=== PATIENT | male | born 1990 | race African-American/Black ===

== ENCOUNTER 2019-06-12 06:49 | Emergency (ER) | payer SELFPAY ==
[~2019-06-12] VITALS: Ht 172.7 cm; Wt 102.1 kg
[2019-06-12 07:03] VITALS: BP 165/95
[2019-06-12] MEDS ORDERED: LIDOCAINE 1% PF 2 ML VIAL. INJ ONE (07:30)
--- NOTE | 2019-06-12 07:34 | PHYS DOC ---
Past Medical History Past Medical History: Hypertension Alcohol Use: None Drug Use: Marijuana Adult General Chief Complaint Chief Complaint: ABSCESS HPI HPI Patient is a 28 year old male who presents with complaining of abscess. Patient states he had a painful area in left knee for the last 1 week that gradually getting larger and more painful. Patient states he tried to open it 4 days ago but nothing came out. Patient denies fever and chills, focal neuro deficit and injury. Patient states he had history of previous MRSA. Review of Systems Review of Systems Constitutional: Denies fever or chills [] Eyes: Denies change in visual acuity, redness, or eye pain [] HENT: Denies nasal congestion or sore throat [] Respiratory: Denies cough or shortness of breath [] Cardiovascular: No additional information not addressed in HPI [] GI: Denies abdominal pain, nausea, vomiting, bloody stools or diarrhea [] : Denies dysuria or hematuria [] Musculoskeletal: Denies back pain or joint pain [] Integument: Denies rash, reports skin lesions [] Neurologic: Denies headache, focal weakness or sensory changes [] Endocrine: Denies polyuria or polydipsia [] All other systems were reviewed and found to be within normal limits, except as documented in this note. Current Medications Current Medications Current Medications Medications (Trade) Dose Ordered Sig/Christian Start Time Stop Time Status Last Admin Dose Admin Lidocaine HCl (Xylocaine-Mpf 1% 2ml Vial) 2 ml 1X ONCE 06/12/19 07:30 06/12/19 07:31 DC 06/12/19 07:30 2 ML Allergies Allergies Allergies Uncoded Allergies Type Severity Reaction Last Updated Verified percoset Adverse Reaction Unknown Nausea, vomiting 06/12/19 Physical Exam Physical Exam Constitutional: Well developed, well nourished, mild distress, non-toxic appearance. [] HENT: Normocephalic, atraumatic. Eyes: PERRLA, EOMI, conjunctiva normal, no discharge. [] Neck: Normal range of motion, no tenderness, supple, no stridor. [] Cardiovascular:Heart rate regular rhythm, no murmur [] Lungs & Thorax: Bilateral breath sounds clear to auscultation [] Skin: Warm, dry, no rash, 1x 1 cm area of tenderness and fluctuating in left anterior knee. [] Extremities: No tenderness, no cyanosis, no clubbing, ROM intact, no edema. [] Neurologic: Alert and oriented X 3, normal motor function, normal sensory function, no focal deficits noted. [] Psychologic: Affect normal, judgement normal, mood normal. [] Current Patient Data Vital Signs Vital Signs Date Time Temp Pulse Resp B/P (MAP) Pulse Ox O2 Delivery O2 Flow Rate FiO2 06/12/19 07:03 98.4 87 18 165/95 (118) 97 Room Air 98.4 EKG EKG [] Radiology/Procedures Radiology/Procedures [] Course & Med Decision Making Course & Med Decision Making Evaluation of patient in ER showed 28-year-old male patient with a small abscess and 2 episodes of left knee that was drained. Dragon Disclaimer Dragon Disclaimer This electronic medical record was generated, in whole or in part, using a voice recognition dictation system. Departure Departure Impression: Primary Impression: Abscess of left leg Disposition: TRANSFER [facility] (at [id number]) Condition: IMPROVED Referrals: NO PCP (PCP) Patient Instructions: Abscess, Abscess, Care After, Community-Associated MRSA Additional Instructions: Change dressing once or twice a day Follow-up with your primary care physician in 3-5 days Return to ER if not getting better Scripts Naproxen (NAPROSYN) 500 Mg Tablet 1 TAB PO BID for pain, #20 TAB Prov: ROMAINE DONG MD 06/12/19 Sulfamethoxazole/Trimethoprim (BACTRIM DS TABLET) 1 Each Tablet 1 TAB PO BID for infection, #14 TAB Prov: ROMAINE DONG MD 06/12/19 Incision and Drainage Indication: abscess Procedure: The patient was positioned appropriately. Local anesthesia was 1% lidocaine was given on left anterior knee and an incision was then made over the apex of the lesion and moderate amount of pus material was expressed. The drainage cavity was irrigated and packed with sterile gauze. The patient�s tetanus status updated as needed. The patient tolerated the procedure well. Complications: none. ROMAINE DONG MD Jun 12, 2019 07:33
[2019-06-12] MEDS ORDERED: NAPR-683 PO (08:11)
[2019-06-12] MEDS ORDERED: SULF1TAB24 PO (08:11)
== END 2019-06-12 08:12 | disposition home or self-care (01) ==
LOC: ER 06:49
DX: L02.416 Cutaneous abscess of left lower limb (principal); I10 Essential (primary) hypertension; Z88.5 Allergy status to narcotic agent
CPT/HCPCS: 10060; 99283

== ENCOUNTER 2020-06-26 14:26 | Emergency (ER) | payer SELFPAY ==
[~2020-06-26] VITALS: Ht 172.7 cm; Wt 109.0 kg
[~2020-06-26 14:26] MED LIST: NAPR-683 PO; SULF1TAB24 PO
--- NOTE | 2020-06-26 15:20 | PHYS DOC ---
Past Medical History Past Medical History: Hypertension Smoking Status: Current Every Day Smoker Alcohol Use: None Drug Use: Marijuana General Adult EDM: Chief Complaint: FEVER HPI: HPI: The history was obtained from the patient. Patient is a 30-year-old male with PMH asthma who presents with a chief complaint of fevers and chills. Patient states his greatest concern is being tested for coronavirus. Patient states that over the past 2 days he has had fevers and chills. He notes 2 days ago he had a temperature as high as 101.8. He has been taking Tylenol occasionally. He denies any cough or shortness of breath. He does note a mild sore throat. He does note pain with swallowing. He states he has been able to eat and drink well otherwise. He notes that he is not take medications daily. He denies any vomiting or diarrhea. He denies any neck stiffness or headaches. He states that his girlfriend at home has been exposed to coronavirus at work. No other complaints. Review of Systems: Review of Systems: Constitutional: Positive for fevers and chills, malaise, fatigue Eyes: Denies change in visual acuity. [] HENT: Positive for sore throat Respiratory: Denies cough or shortness of breath. [] Cardiovascular: Denies chest pain or edema. [] GI: Denies abdominal pain, nausea, vomiting, bloody stools or diarrhea. [] : Denies dysuria. [] Musculoskeletal: Denies back pain or joint pain. [] Integument: Denies rash. [] Neurologic: Denies headache, focal weakness or sensory changes. [] Endocrine: Denies polyuria or polydipsia. [] Lymphatic: Denies swollen glands. [] Psychiatric: Denies depression or anxiety. [] Heart Score: Risk Factors: Risk Factors: DM, Current or recent (<one month) smoker, HTN, HLP, family history of CAD, obesity. Risk Scores: Score 0 - 3: 2.5% MACE over next 6 weeks - Discharge Home Score 4 - 6: 20.3% MACE over next 6 weeks - Admit for Clinical Observation Score 7 - 10: 72.7% MACE over next 6 weeks - Early Invasive Strategies Allergies: Allergies: Allergies Uncoded Allergies Type Severity Reaction Last Updated Verified percoset Adverse Reaction Unknown Nausea, vomiting 06/12/19 Physical Exam: PE: Constitutional: Well developed, well nourished, no acute distress, non-toxic appearance. [] HENT: Normocephalic, atraumatic, bilateral external ears normal. Mild tonsillar erythema noted. Mild exudates appreciated. No tonsillar swelling or deviation noted. Normal phonation. No trismus appreciated. Eyes: PERRLA, EOMI, conjunctiva normal, no discharge. [] Neck: Normal range of motion, no tenderness, supple, no stridor. [] Cardiovascular:Heart rate regular rhythm, no murmur [] Lungs & Thorax: Bilateral breath sounds clear to auscultation [] Abdomen: Bowel sounds normal, soft, no tenderness, no masses, no pulsatile masses. [] Skin: Warm, dry, no erythema, no rash. [] Back: No tenderness, no CVA tenderness. [] Extremities: No tenderness, no cyanosis, no clubbing, ROM intact, no edema. [] Neurologic: Alert and oriented X 3, normal motor function, normal sensory function, no focal deficits noted. [] Psychologic: Affect normal, judgement normal, mood normal. [] Current Patient Data: Labs: Current Medications Medications (Trade) Dose Ordered Sig/Christian Route PRN Reason Start Time Stop Time Status Last Admin Dose Admin Acetaminophen (Tylenol) 1,000 mg 1X ONCE PO 06/26/20 15:30 06/26/20 15:31 DC 06/26/20 15:39 Vital Signs: Vital Signs Date Time Temp Pulse Resp B/P (MAP) Pulse Ox O2 Delivery O2 Flow Rate FiO2 06/26/20 14:35 98.5 94 20 152/101 (118) 97 Room Air 98.5 EKG: EKG: [] Radiology/Procedures: Radiology/Procedures: [] Course & Med Decision Making: Course & Med Decision Making Pertinent Labs and Imaging studies reviewed. (See chart for details) Patient is an overall well-appearing 30-year-old male who presents with chief complaint of subjective fevers and chills with sore throat. Rapid strep test was obtained and was negative. Chest x-ray was deferred as he denies any cough or shortness of breath. Vital signs are stable. Cardiac testing was obtained and patient be notified of pending results. At this time he is appropriate for discharge home. Return precautions were discussed and understood. Vital signs been stable. Instructed to follow-up with a primary care physician. Stable for discharge home. Dragon Disclaimer: Dragon Disclaimer: This electronic medical record was generated, in whole or in part, using a voice recognition dictation system. Departure Departure Disposition: 01 HOME, SELF-CARE Condition: GOOD Referrals: NO PCP (PCP) Patient Instructions: Sore Throat Additional Instructions: COVID-19 FREQUENTLY ASKED QUESTIONS What is coronavirus disease 2019 (COVID-19)? It is a respiratory illness with symptoms such as a cough, fever, and difficulty breathing. You can protect yourself by washing your hands frequently, not touching your face or rubbing your eyes, and avoiding close contact (3 - 6 feet) with people who are unwell. Coronavirus disease spreads primarily through contact with an infected person when they cough or sneeze. It also spreads when a person touches a surface or object that has the virus on it, then touches their eyes, nose, or mouth. Why didnt I get tested today for the longo virus? Testing at all [facility] hospitals is currently very limited and only available to high risk individuals, especially those who are sick enough to be admitted to the hospital. Most patients will not be tested, even if we suspect they are sick from the longo virus. Regardless if you are tested or not, if you are sick, please stay home and remain apart from others for at least 14 days. If you still want to be tested, you have several options: You can call your primary care physician who may be able to order the test for you if you meet specific criteria established by the CDC. Call the [facility] Department at for a telephone screening to see if you are eligible to be tested. Go to www.CoronaVirus.[place].gov for more information or call the [facility] at [phone]) 3-OPD-FYN. What can I do at home to make me feel better? There is no cure for this virus. Those that become ill are often sick for 2-3 weeks. If you are sick, stay at home and rest. Drink plenty of fluids. Take acetaminophen (Tylenol) for fever and muscle aches. Continue to take your daily prescribed medication. Isolate yourself from others living in your home until you start to feel better. Reach out to your primary care provider or [facility] for guidance while you are ill. New treatments, along with vaccines, are being researched but nothing is currently available. Experimental treatments, if they become available, will be reserved for the sickest patients. What is quarantine and why is it important? Quarantine is recommended for anyone who is ill with symptoms such as fever and cough. This means staying at home and avoiding contact with others for at least 14 days, until you get better. Since testing is not widely available, it is reasonable to assume that your cough, fever, muscle aches, and fatigue are due to a viral infection. So, play it safe and remain at home and practice social distancing (remain at least 6 feet from others), wash your hands regularly, use facial tissue to cover your mouth and nose when you cough or sneeze, and throw it away immediately. What should I do if I start feeling worse? If your symptoms worsen, you should either call your doctor or nearby health clinic, go to the closest emergency department or CALL 911. Emergency warning signs may include: Trouble breathing. Persistent pain or pressure in your chest. New confusion or difficulty to arouse. Bluish lips or face. Any symptoms that you feel are severe or concerning. What if my sickness is due to something else? The majority of people who become sick from the longo virus develop fever, muscle aches, cough, shortness of breath and fatigue within a few days of being exposed to the virus. Some people experience nausea and diarrhea a few days ahead of time. If you are worried about how you feel or you believe your symptoms are due to something else , call your primary care physician or go to the closest emergency department. How do I prevent the spread of germs when caring for someone who is sick? Have the ill person stay in one room away from others. If possible, have them use a separate bathroom and avoid sharing personal household items like dishes, towels, bedding, etc. If a facemask is available, have them wear it when they are around others. You should also wear a facemask, if you have one, when you are in the room with them. Wash your hands often with soap and water for at least 20 seconds or use a hand brim setter that contains at least 60% alcohol each time after interacting with the sick person. If you use a hand brim setter, cover all surfaces of your hands and rub them together until they dry. Avoid touching your eyes, nose and mouth and clean all surfaces regularly that are often touched (counters, tabletops and doorknobs). Wash laundry thoroughly. Stay Safe. Stay Informed. Stay Well. [facility] [address] [address] [employer] [address] [address] [facility] CARE [address] [facility]. [address] [facility] [address] [address] [facility] [address] [place] [address] [address] [place] [address] [address] [place] [address] [address] [facility] [address] [address] [facility] [address] [address] [facility] [address] [place] [address] Justicifation of Admission Dx: Justifications for Admission: Justification of Admission Dx: N/A KATT MATHEW DO Jun 26, 2020 15:19
[2020-06-26] MEDS ORDERED: ACETAMINOPHEN 500 MG TABLET PO ONE (15:30)
[2020-06-26 17:00] VITALS: BP 168/88
--- NOTE | 2020-06-27 14:49 | NUR ---
IP: Informed pt of negative COVID results. pt verbalized understanding. No questions.
== END 2020-06-26 17:00 | disposition home or self-care (01) ==
LOC: ER 14:26
DX: R50.9 Fever, unspecified (principal); Z20.828 Contact with and (suspected) exposure to other viral communicable diseases; J02.9 Acute pharyngitis, unspecified; I10 Essential (primary) hypertension; F17.200 Nicotine dependence, unspecified, uncomplicated; F12.90 Cannabis use, unspecified, uncomplicated
CPT/HCPCS: 87070; 87880; 99283; U0003

== ENCOUNTER 2021-10-12 16:59 | Emergency (ER) | payer SELFPAY ==
[~2021-10-12] VITALS: Ht 172.7 cm; Wt 118.0 kg
[2021-10-12] MEDS ORDERED: cefTRIAXone IM 500 MG VIAL. IM ONE (17:45)
[2021-10-12] MEDS ORDERED: DOXYCYCLINE HYCLATE 100 MG TABLET PO ONE (17:45)
[2021-10-12] MEDS ORDERED: DOXY100C3 PO (18:20)
--- NOTE | 2021-10-12 18:21 | PHYS DOC ---
Past Medical History Past Medical History: Asthma, Hypertension Past Surgical History: No Surgical History Smoking Status: Current Every Day Smoker Alcohol Use: Occasionally Drug Use: Marijuana General Adult EDM: Chief Complaint: SEXUALLY TRANSMITTED DISEASE HPI: HPI: Patient is a 31 year old male who presents with concern for sexually transmitted infection. Patient states that his only sexual partner tested positively for either gonorrhea or chlamydia, he is unsure which. Patient reports that he does have dysuria and urethral discharge. He reports having unprotected sex with this partner. Patient has no other complaints at this time. Review of Systems: Review of Systems: ROS negative except as mentioned in HPI. Heart Score: C/O Chest Pain: No Current Medications: Current Medications Medications (Trade) Dose Ordered Sig/Christian Start Time Stop Time Status Last Admin Dose Admin Ceftriaxone Sodium (Rocephin Im) 500 mg 1X ONCE 10/12/21 17:45 10/12/21 17:46 DC 10/12/21 17:51 500 MG Doxycycline Hyclate (Vibra-Tab) 100 mg 1X ONCE 10/12/21 17:45 10/12/21 17:46 DC 10/12/21 17:51 100 MG Allergies: Allergies: Allergies Coded Allergies Type Severity Reaction Last Updated Verified acetaminophen Adverse Reaction Unknown Nausea and Vomiting 10/12/21 Yes oxycodone Adverse Reaction Unknown Nausea and Vomiting 10/12/21 Yes Physical Exam: PE: Constitutional: Obese, poorly groomed, no acute distress, non-toxic appearance. Cardiovascular: Heart rate regular rhythm, no murmur. Lungs & Thorax: Bilateral breath sounds clear to auscultation. Neurologic: Alert and oriented x4, no focal deficits noted. Genital exam deferred by patient. Current Patient Data: Vital Signs: Vital Signs Date Time Temp Pulse Resp B/P (MAP) Pulse Ox O2 Delivery O2 Flow Rate FiO2 10/12/21 17:31 98.2 66 20 152/90 (110) 98 Room Air 98.2 Course & Med Decision Making: Course & Med Decision Making Pertinent Labs and Imaging studies reviewed. (See chart for details) Patient has known STI exposure and will be treated prophylactically. Other STI testing was offered to the patient, which he accepted. Blood was drawn to test for syphilis and HSV 1 and 2. Patient will be informed of lab findings by phone. Patient instructed to refrain from sexual activity until he has completed his course of antibiotics. Additionally, he should encourage his partner to seek treatment, if she has not already. Advised patient to use condoms for each sexual encounter to prevent further infections in the future. Patient understands and is agreeable to discharge plan. Rachell Disclaimer: Rachell Disclaimer: This electronic medical record was generated, in whole or in part, using a voice recognition dictation system. Departure Departure Impression: Primary Impression: Exposure to gonorrhea Additional Impressions: Exposure to chlamydia Elevated blood pressure reading Disposition: HOME / SELF CARE / HOMELESS Condition: STABLE Referrals: NO PCP (PCP) Patient Instructions: Sexually Transmitted Disease, [id number] Additional Instructions: Please visit your family doctor for evaluation and possible treatment for elevated blood pressure. Scripts Doxycycline Hyclate (DOXYCYCLINE HYCLATE) 100 Mg Capsule 1 CAP PO BID, #13 CAP Prov: JODI VELÁZQUEZ 10/12/21 JODI VELÁZQUEZ Oct 12, 2021 18:21
[2021-10-12 18:26] VITALS: BP 170/105
== END 2021-10-12 18:26 | disposition home or self-care (01) ==
LOC: ER 16:59
DX: Z20.2 Contact with and (suspected) exposure to infections with a predominantly sexual mode of transmission (principal); I10 Essential (primary) hypertension; J45.909 Unspecified asthma, uncomplicated; F17.200 Nicotine dependence, unspecified, uncomplicated; Z88.5 Allergy status to narcotic agent; Z88.6 Allergy status to analgesic agent
CPT/HCPCS: 86592; 87491; 87591; 96372; 99283; J0696